=== PATIENT | male | born 1950 | race Caucasian/White ===

== ENCOUNTER 2019-05-17 20:14 | Emergency (ER) | payer MEDICARE, OTHER ==
[~2019-05-17] VITALS: Ht 182.9 cm; Wt 88.5 kg
[2019-05-17] MEDS ORDERED: ATOR20TA PO (20:33)
[2019-05-17] MEDS ORDERED: OXYCODONE/APAP 5-325 MG TABLET PO ONE (20:45)
[2019-05-17] MEDS ORDERED: ONDANSETRON ODT 4 MG TAB.RAPDIS SL ONE (20:45)
--- NOTE | 2019-05-17 20:47 | NUR ---
POOL CLEANER AT BEDSIDE
[2019-05-17] MEDS ORDERED: ONDANSETRON ODT 4 MG TAB.RAPDIS ONE (20:53)
[2019-05-17] MEDS ORDERED: OXYCODONE/APAP 5-325 MG TABLET ONE (20:53)
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
--- NOTE | 2019-05-17 21:43 | NUR ---
Patient discharged to home in stable conditon. Written and verbal after care instructions given. Patient verbalizes understanding of instructions. AMBULATORY W/ ANTALGIC GAIT ALL BELONGINGS W/ PT INSTRUCTED NOT TO DRIVE. WILL [address]IVE
[2019-05-17 21:46] VITALS: BP 150/79
== END 2019-05-17 22:04 | disposition home or self-care (01) ==
LOC: ER 20:18
DX: M54.5 Low back pain (principal); Z79.899 Other long term (current) drug therapy; V43.92XA Unspecified car occupant injured in collision with other type car in traffic accident, initial encounter; Y93.89 Activity, other specified; Y92.410 Unspecified street and highway as the place of occurrence of the external cause; Y99.8 Other external cause status
CPT/HCPCS: 72110; A4663; Q0162